=== PATIENT | female | born 1990 | race American Indian/Alaskan Native ===

== ENCOUNTER 2021-02-14 11:54 | Outpatient (CLI) | payer MEDICAID ==
[2021-02-14 13:18] LABS: Hematocrit 23.5 % (30.3-42.9); Hemoglobin 7.5 gm/dl (10.1-14.3)
[2021-02-14 13:33] LABS: % Iron Saturation 63.91 %
[2021-02-16 12:18] LABS: Protein S, Free 85 % normal (50-147); Protein S, Total 86 % normal (70-140)
== END 2021-02-14 11:55 | disposition home or self-care (01) ==
LOC: LAB 11:54
PROVIDERS: ATTEND Internal Medicine Hematology & Oncology
DX: Z45.2 Encounter for adjustment and management of vascular access device (principal); D57.1 Sickle-cell disease without crisis
CPT/HCPCS: 36415; 82670; 83550; 84144; 84146; 85014; 85018; 85220; 85305; 96523; J1642

== ENCOUNTER 2021-10-15 05:30 | Emergency (ER) | payer MEDICAID ==
[2021-10-15 05:41] VITALS: BP 141/94
[2021-10-15 06:48] LABS: Hemoglobin 8.2 gm/dl (10.1-14.3); Mean Corpuscular HGB Conc 33 % (30-34); Mean Corpuscular Volume 89 fl (79-97); Platelet Count 422 K/mm3 (140-440); Red Blood Count 2.82 M/mm3 (3.65-5.03); Red Cell Distribution Width 19.3 % (13.2-15.2)
[2021-10-15 06:59] LABS: Alanine Aminotransferase 29 units/L (7-56); Albumin 4.8 g/dL (3.9-5); Blood Urea Nitrogen 9 mg/dL (7-17); Hemolysis Index 31
[2021-10-15 07:14] LABS: BUN/Creatinine Ratio 15
[2021-10-15 07:38] LABS: Basophils % (Manual) 0 % (0.0-1.8); Total Cells Counted 100
[2021-10-15 07:39] LABS: Anisocytosis 1+; Hypochromasia 1+; Platelet Estimate Consistent w Auto; Poikilocytosis 2+; Sickle Cells 1+
== END 2021-10-15 09:54 | disposition left against medical advice (07) ==
LOC: ED 05:30
DX: D57.1 Sickle-cell disease without crisis (principal); Z53.21 Procedure and treatment not carried out due to patient leaving prior to being seen by health care provider
CPT/HCPCS: 36415; 80053; 84703; 85007; 85025; 85045